=== PATIENT | male | born 1980 | race Caucasian/White ===

== ENCOUNTER 2016-11-20 18:53 | Inpatient (IN) | payer OTHER ==
[~2016-11-20] VITALS: Ht 177.8 cm; Wt 104.3 kg
[2016-11-20 19:24] LABS: BASOPHIL % 1.1 % (0-2); PLATELET COUNT 278 x10^3mcL (130-400); RED CELL DISTRIBUTION WIDTH 13.9 % (11.5-14.5)
[2016-11-20 19:31] LABS: CALCIUM 9.5 mg/dL (8.5-10.1); CARBON DIOXIDE 24.1 mmol/L (21-32); CHLORIDE SERUM 102 mmol/L (98-107); GFR1 > 60 mL/min; GLUCOSE SERUM 153 mg/dL (74-106); POTASSIUM SERUM 3.2 mmol/L (3.5-5.1); SODIUM SERUM 138 mmol/L (136-145)
[2016-11-20 19:35] LABS: ALBUMIN 4.2 g/dL (3.4-5.0); ALKALINE PHOSPHATASE 116 U/L (46-116); ALT/SGPT 50 U/L (16-63); AST/SGOT 28 U/L (15-37); BILIRUBIN TOTAL 0.5 mg/dL (0.20-1.00); TOTAL PROTEIN, SERUM 8.2 g/dL (6.4-8.2)
[2016-11-20 20:15] LABS: microscopic required? YES; urine erythrocyte 1+ (NEGATIVE)
[2016-11-20] MEDS ORDERED: PREDNISONE10 MG PO (20:17)
[2016-11-20] MEDS ORDERED: BENAZEPRIL HYDR20 M1 PO (20:18)
[2016-11-20] MEDS ORDERED: K10 PO (20:19)
[2016-11-20] MEDS ORDERED: TRAZODONE50 M1 PO (20:19)
[2016-11-20] MEDS ORDERED: SIROLIMUS1 MG PO (20:20)
[2016-11-20] MEDS ORDERED: OMEPRAZOLE40 M1 PO (20:20)
[2016-11-20] MEDS ORDERED: CIPRO500 MG PO ×2 (20:21→21:53)
[2016-11-20] MEDS ORDERED: PROGRAF1 MG PO (20:22)
[2016-11-20] MEDS ORDERED: CLARITIN10 MG PO (20:23)
[2016-11-20] MEDS ORDERED: MAGNESIUM OXID400 MG PO (20:23)
[2016-11-20 20:26] LABS: AMPHETAMINE QUAL UR NONE DETECTED (NEG <=1000)
[2016-11-20 20:46] VITALS: BP 134/96
[2016-11-20 21:10] VITALS: BP 134/96
[2016-11-20 21:42] LABS: CHOLESTEROL/HDL RATIO 4.8
[2016-11-20 21:50] LABS: T3 TOTAL 1.21 ng/mL
[2016-11-20 21:56] LABS: FREE T4 1.55 ng/dL (0.76-1.46); FREE THYROXINE INDEX 4.1 ug/dL (1.4-4.5)
[2016-11-21 05:01] LABS: BASOPHIL % 0.4 % (0-2); PLATELET COUNT 255 x10^3mcL (130-400); RED CELL DISTRIBUTION WIDTH 14.5 % (11.5-14.5)
[2016-11-21 05:22] LABS: CALCIUM 8.7 mg/dL (8.5-10.1); CARBON DIOXIDE 24.6 mmol/L (21-32); CHLORIDE SERUM 105 mmol/L (98-107); GFR1 > 60 mL/min; GLUCOSE SERUM 106 mg/dL (74-106); MAGNESIUM 1.7 mg/dL (1.8-2.4); PHOSPHOROUS 3.9 mg/dL (2.5-4.9); POTASSIUM SERUM 4.1 mmol/L (3.5-5.1); SODIUM SERUM 140 mmol/L (136-145)
[2016-11-21 05:43] VITALS: BP 134/91
[2016-11-21 10:05] VITALS: BP 135/100
[2016-11-21 17:14] VITALS: BP 113/77
== END 2016-11-21 20:09 | disposition left against medical advice (07) | DRG 203 ==
LOC: ED 18:53 → DU 20:03
PROVIDERS: Emergency Medicine; ADMIT Family Medicine
DX: M94.0 Chondrocostal junction syndrome [Tietze] (principal); D68.69 Other thrombophilia; Z94.1 Heart transplant status; E11.65 Type 2 diabetes mellitus with hyperglycemia; I11.0 Hypertensive heart disease with heart failure; I50.9 Heart failure, unspecified; N39.0 Urinary tract infection, site not specified; E87.6 Hypokalemia; Z53.29 Procedure and treatment not carried out because of patient's decision for other reasons; R31.9 Hematuria, unspecified; E78.2 Mixed hyperlipidemia; E83.42 Hypomagnesemia; Z79.899 Other long term (current) drug therapy
CPT/HCPCS: 82962; 83880; 84439; J0295; J2270; J2405; J3010; J3475; J3490; J7030; J7507; Q0092

== ENCOUNTER 2017-08-08 15:44 | Emergency (ER) | payer OTHER ==
[~2017-08-08] VITALS: Ht 177.8 cm; Wt 88.5 kg
[~2017-08-08 15:44] MED LIST: BENAZEPRIL HYDR20 M1 PO; CIPRO500 MG PO; CLARITIN10 MG PO; K10 PO; MAGNESIUM OXID400 MG PO; OMEPRAZOLE40 M1 PO; PREDNISONE10 MG PO; PROGRAF1 MG PO; SIROLIMUS1 MG PO; TRAZODONE50 M1 PO
[2017-08-08 15:51] VITALS: Ht 177.8 cm; Wt 88.5 kg
[2017-08-08 16:33] LABS: BASOPHIL % 0.5 % (0-2); PLATELET COUNT 257 x10^3mcL (130-400); RED CELL DISTRIBUTION WIDTH 14.1 % (11.5-14.5)
[2017-08-08 16:34] LABS: CALCIUM 9.4 mg/dL (8.5-10.1); CARBON DIOXIDE 24.4 mmol/L (21-32); CHLORIDE SERUM 101 mmol/L (98-107); CREATININE SERUM 0.9 mg/dL (0.7-1.3); GFR1 > 60 mL/min; GLUCOSE SERUM 162 mg/dL (74-106); POTASSIUM SERUM 3.5 mmol/L (3.5-5.1); SODIUM SERUM 139 mmol/L (136-145)
[2017-08-08 16:39] LABS: ALBUMIN 4.2 g/dL (3.4-5.0); ALKALINE PHOSPHATASE 104 U/L (46-116); ALT/SGPT 59 U/L (16-63); AST/SGOT 29 U/L (15-37)
[2017-08-08 16:40] LABS: TOTAL PROTEIN, SERUM 8.4 g/dL (6.4-8.2)
[2017-08-08 17:27] VITALS: BP 114/75
== END 2017-08-08 17:27 | disposition home or self-care (01) ==
LOC: ED 15:44
PROVIDERS: Emergency Medicine
DX: F41.1 Generalized anxiety disorder (principal)
CPT/HCPCS: J2060; J7030; Q0092

== ENCOUNTER 2017-11-09 23:17 | Inpatient (IN) | payer OTHER ==
[~2017-11-09] VITALS: Ht 177.8 cm; Wt 85.0 kg
[2017-11-09 23:25] VITALS: Ht 177.8 cm; Wt 85.0 kg
[2017-11-09 23:51] LABS: PLATELET COUNT 282 x10^3mcL (130-400)
[2017-11-09 23:53] LABS: CALCIUM 8.9 mg/dL (8.5-10.1); CARBON DIOXIDE 22.5 mmol/L (21-32); CHLORIDE SERUM 107 mmol/L (98-107); CREATININE SERUM 0.9 mg/dL (0.7-1.3); GFR1 > 60 mL/min; GLUCOSE SERUM 154 mg/dL (74-106); POTASSIUM SERUM 3.6 mmol/L (3.5-5.1); SODIUM SERUM 137 mmol/L (136-145)
[2017-11-09 23:54] LABS: RED CELL DISTRIBUTION WIDTH 14.8 % (11.5-14.5)
[2017-11-09 23:57] LABS: ALBUMIN 4.3 g/dL (3.4-5.0); ALKALINE PHOSPHATASE 114 U/L (46-116); ALT/SGPT 59 U/L (16-63); BILIRUBIN TOTAL 0.5 mg/dL (0.20-1.00)
[2017-11-09 23:58] LABS: TOTAL PROTEIN, SERUM 8.3 g/dL (6.4-8.2)
[2017-11-10 00:38] LABS: AST/SGOT 44 U/L (15-37)
[2017-11-10 01:04] LABS: UA SPECIFIC GRAVITY <=1.005 (1.005-1.035); microscopic required? YES; urine erythrocyte 2+ (NEGATIVE)
[2017-11-10 01:10] LABS: AMPHETAMINE QUAL UR NONE DETECTED (NEG <=1000)
[2017-11-10 03:58] LABS: AMYLASE 39 U/L (25-115); LIPASE 111 IU/L (73-393); MAGNESIUM 1.5 mg/dL (1.8-2.4); TRIGLYCERIDES 741 mg/dL (<150)
[2017-11-10 03:59] LABS: CHOLESTEROL 211 mg/dL (<200); HDL CHOLESTEROL 30 mg/dL (40-60)
[2017-11-10 04:08] LABS: FREE T4 1.24 ng/dL (0.76-1.46); FREE THYROXINE INDEX 3.6 ug/dL (1.4-4.5); T4(THYROXINE) 9.9 ug/dL (4.7-13.3)
[2017-11-10 04:52] VITALS: BP 136/88
[2017-11-10 06:58] LABS: T3 TOTAL 1.32 ng/mL
[2017-11-10 08:10] VITALS: BP 139/95
[2017-11-10 12:38] VITALS: BP 121/83
[2017-11-10 15:22] VITALS: BP 128/88
[2017-11-10 20:27] VITALS: BP 137/92
[2017-11-11 05:49] VITALS: BP 145/94
[2017-11-11 06:09] LABS: BASOPHIL % 0.3 % (0-2); PLATELET COUNT 235 x10^3mcL (130-400); RED CELL DISTRIBUTION WIDTH 14.4 % (11.5-14.5)
[2017-11-11 06:12] LABS: CALCIUM 8.5 mg/dL (8.5-10.1); CARBON DIOXIDE 26.5 mmol/L (21-32); CHLORIDE SERUM 106 mmol/L (98-107); CREATININE SERUM 0.9 mg/dL (0.7-1.3); GFR1 > 60 mL/min; GLUCOSE SERUM 103 mg/dL (74-106); POTASSIUM SERUM 3.9 mmol/L (3.5-5.1); SODIUM SERUM 142 mmol/L (136-145)
[2017-11-11] MEDS ORDERED: SERTRALINE50 M1 PO (09:20)
[2017-11-11 12:50] VITALS: BP 137/88
[2017-11-11] MEDS ORDERED: GLU500 PO (13:07)
[2017-11-11 13:42] VITALS: BP 138/100
== END 2017-11-11 14:45 | disposition home or self-care (01) | DRG 812 ==
LOC: ED 23:17 → IC 11-10 03:18 → DU 11-10 03:18 → IC 11-10 04:49 → DU 11-10 16:50
PROVIDERS: Emergency Medicine; Family Medicine
DX: T39.1X2A Poisoning by 4-Aminophenol derivatives, intentional self-harm, initial encounter (principal); N17.0 Acute kidney failure with tubular necrosis; Z94.1 Heart transplant status; I10 Essential (primary) hypertension; Y92.89 Other specified places as the place of occurrence of the external cause; K21.9 Gastro-esophageal reflux disease without esophagitis; E11.65 Type 2 diabetes mellitus with hyperglycemia; F33.1 Major depressive disorder, recurrent, moderate; F41.9 Anxiety disorder, unspecified
CPT/HCPCS: 82962; 83880; 84439; G0480; J2060; J7030; J7507; Q0092

== ENCOUNTER 2018-08-07 21:43 | Emergency (ER) | payer OTHER ==
[~2018-08-07 21:43] MED LIST changes: +GLU500 PO; +SERTRALINE50 M1 PO
[2018-08-07 22:34] LABS: BASOPHIL % 0.6 % (0-2); PLATELET COUNT 280 x10^3mcL (130-400); RED CELL DISTRIBUTION WIDTH 14.2 % (11.5-14.5)
[2018-08-07 22:45] LABS: CALCIUM 9.4 mg/dL (8.5-10.1); CARBON DIOXIDE 26.9 mmol/L (21-32); CHLORIDE SERUM 99 mmol/L (98-107); GFR1 > 60 mL/min; GLUCOSE SERUM 332 mg/dL (74-106); POTASSIUM SERUM 3.7 mmol/L (3.5-5.1); SODIUM SERUM 138 mmol/L (136-145)
[2018-08-07 22:50] LABS: ALBUMIN 4.2 g/dL (3.4-5.0); ALKALINE PHOSPHATASE 125 U/L (46-116); ALT/SGPT 79 U/L (16-63); AST/SGOT 33 U/L (15-37)
[2018-08-07 22:53] LABS: TOTAL PROTEIN, SERUM 8.8 g/dL (6.4-8.2)
[2018-08-08 00:32] LABS: AMPHETAMINE QUAL UR NONE DETECTED (See below)
[2018-08-08 04:25] LABS: T3 TOTAL 1.18 ng/mL
[2018-08-08 04:30] VITALS: BP 141/96
[2018-08-08 05:02] LABS: FREE T4 1.38 ng/dL (0.76-1.46)
[2018-08-08 05:32] LABS: MAGNESIUM 1.5 mg/dL (1.8-2.4); PHOSPHOROUS 3.6 mg/dL (2.5-4.9)
[2018-08-08 16:25] LABS: UA SPECIFIC GRAVITY 1.025 (1.005-1.035); microscopic required? YES; urine erythrocyte TRACE (NEGATIVE)
== END 2018-08-08 04:26 | disposition left against medical advice (07) ==
LOC: ED 21:43 → DU 08-08 03:30 → ED 08-08 03:30 → DU 08-08 04:26
PROVIDERS: Emergency Medicine; General Practice
DX: E11.65 Type 2 diabetes mellitus with hyperglycemia (principal); I10 Essential (primary) hypertension; Z94.1 Heart transplant status
CPT/HCPCS: 84439; Q0092